=== PATIENT | female | born 1960 | race Caucasian/White ===

== ENCOUNTER → 2023-06-08 | Outpatient (CLI) | payer MEDICARE, BC ==
--- NOTE | 2023-06-16 09:25 | MM ---
Reason for Exam: Screening (asymptomatic). Last mammogram was performed 1 year(s) and 5 month(s) ago. Patient History: Menarche at age 11. First Full-Term at age 16. Postmenopausal. Breast cancer, age 42. Previous chemotherapy at age 42. 06/01/2002, Mastectomy on the Right side. Excisional Biopsy on the Left side. 06/24/2002, Malignant Excisional Biopsy on the right side. Prior Study Comparison: 09/11/1994 Screening Mammogram, Unknown. 04/14/2001 Bilateral Diagnostic Mammogram, [facility]. 06/15/2002 Bilateral Diagnostic Mammogram, [facility]. 06/15/2002 Right Diagnostic Ultrasound, [facility]. 06/22/2019 Left Screening Mammogram, [facility]. 01/02/2021 Left Screening Mammogram, [facility]. 01/24/2022 Left Screening Mammogram, [facility]. Tissue Density: Left: The breast tissue is heterogeneously dense. This may lower the sensitivity of mammography. Findings: There is no suspicious group of microcalcifications or new suspicious mass. Overall Assessment: Negative, BI-RAD 1 Management: Screening Mammogram of the left breast in [address] [facility] will attempt to contact patient to return for supplemental views and ultrasound if indicated. Patient should continue monthly self-breast exams. A clinical breast exam by your physician is recommended on an annual basis. This exam should not preclude additional follow-up of suspicious palpable abnormalities. Note on Kristin scores and lifetime risk: 1. A Kristin score greater than 3% is considered moderate risk. If this is the case, consider specialist referral to assess eligibility for a risk reducing agent. 2. If overall lifetime risk for the development of breast cancer is 20% or higher, the patient may qualify for future screening with alternating mammogram and breast MRI. Electronically signed and approved by: Dionisio Bailey DO
== END | disposition home or self-care (01) ==
LOC: RADMAMWWP 14:22
PROVIDERS: ATTEND Family Medicine
DX: Z12.31 Encounter for screening mammogram for malignant neoplasm of breast (principal); Z78.0 Asymptomatic menopausal state; Z85.3 Personal history of malignant neoplasm of breast
CPT/HCPCS: 77067